=== PATIENT | female | born 1950 | race Caucasian/White ===

== ENCOUNTER 2017-04-28 11:33 | Outpatient (CLI) | payer MEDICARE | END 2017-04-28 11:34 | disposition home or self-care (01) | LOC: BICMAMMO 11:33 | PROVIDERS: ATTEND Obstetrics & Gynecology | DX: Z12.31 Encounter for screening mammogram for malignant neoplasm of breast (principal); R92.1 Mammographic calcification found on diagnostic imaging of breast; Z80.3 Family history of malignant neoplasm of breast | CPT/HCPCS: 77063; 77067 ==

== ENCOUNTER 2017-07-11 11:04 | Outpatient (CLI) | payer MEDICARE | END 2017-07-11 11:05 | disposition home or self-care (01) | LOC: BICCT 11:04 | PROVIDERS: ATTEND Orthopaedic Surgery | DX: S92.322D Displaced fracture of second metatarsal bone, left foot, subsequent encounter for fracture with routine healing (principal); M19.072 Primary osteoarthritis, left ankle and foot; M20.12 Hallux valgus (acquired), left foot; M21.172 Varus deformity, not elsewhere classified, left ankle ==

== ENCOUNTER 2017-09-05 14:59 | Outpatient (CLI) | payer MEDICARE | END 2017-09-05 15:00 | disposition home or self-care (01) | LOC: BICMAMMO 14:59 | PROVIDERS: ATTEND Family Medicine | DX: M81.0 Age-related osteoporosis without current pathological fracture (principal); M85.89 Other specified disorders of bone density and structure, multiple sites | CPT/HCPCS: 77080 ==

== ENCOUNTER 2017-09-15 11:04 | Observation (INO) | payer MEDICARE ==
[2017-09-15 11:42] LABS: #Eosinphils 0.1 thou/uL (0.0-0.7); #Lymphocytes 1.8 thou/uL (1.20-3.40); #Monocytes 0.4 thou/uL (0.11-0.59); #Neutrophils 2.8 thou/uL (1.40-6.50); %Basophils 0.9 % (0.0-1.0); %Eosinophils 1.4 % (0.0-10.0); %Lymphocytes 34.4 % (21.0-51.0); %Monocytes 8.7 % (0.0-10.0); %Neutrophils 54.6 % (42.0-75.0); Hemoglobin 14.7 g/dL (12.0-16.0); Mean Corpuscular HGB CONC 34.9 g/dL (32.0-36.0); Mean Corpuscular Hemoglobin 30.6 pg (27.0-31.0); Mean Corpuscular Volume 87.7 fL (78.0-98.0); Mean Platelet Volume 7.2 fL (7.4-10.4); Platelet Count 200 thou/uL (130-400); RBC Distribution Width 11.5 % (11.5-14.5); Red Blood Cell (RBC) Count 4.79 mill/uL (4.20-5.40); White Blood Cell (WBC) Count 5.1 thou/uL (4.8-10.8)
[2017-09-15 12:04] LABS: ALT (SGPT) 15 U/L (8-55); AST (SGOT) 17 U/L (5-34); Albumin 4.6 g/dL (3.4-4.8); Alkaline Phosphatase 53 U/L (40-150); Anion Gap 15 mmol/L (10-20); BUN (Urea Nitrogen) 14 mg/dL (9.8-20.1); Bilirubin, Total 0.8 mg/dL (0.2-1.2); CK (CPK) 34 U/L (29-168); Calc. Creatinine Clearance 0 mL/min (70-130); Carbon Dioxide 24 mmol/L (23-31); Chloride 105 mmol/L (98-107); Estimated GFR-MDRD 73; Globulin 2.7 g/dL (2.4-3.5); Glucose 114 mg/dL (80-115); Lipase Less than 4 U/L (8-78); Magnesium 2.2 mg/dL (1.6-2.6); Protein, Total 7.3 g/dL (6.0-8.3); Sodium 140 mmol/L (136-145)
[2017-09-15] MEDS ORDERED: Lidocaine Viscous Sol 2% 15 ml UD Cup ONE (12:06)
[2017-09-15] MEDS ORDERED: Mag-Al 1200 mg/1200 mg/30 ML UDCUP ONE (12:06)
[2017-09-15 12:11] LABS: Troponin I Less than 0.010 ng/mL (< 0.028)
--- NOTE | 2017-09-15 12:11 | RAD ---
PORTABLE CHEST: History: Chest pain, discomfort, pain radiating to left arm. Comparison: 05-21-04 FINDINGS: Heart size and mediastinum within normal limits. There are atherosclerotic changes of the aorta. Lung s are clear of infiltrates. There are no signs of failure. IMPRESSION: No active intrathoracic disease. POS: [facility]
[2017-09-15 12:40] LABS: Bilirubin Negative (Negative); Blood, Urine Negative (Negative); Clarity CLEAR (Clear); Glucose, Urine (Dipstick) Negative (Negative); Leukocyte Negative (Negative); Nitrite Negative (Negative); Protein, Urine (Dipstick) Negative (Neg-Trace); Specific Gravity, Urine 1.013 (1.002-1.036); pH, Urine 6.5 (5.0-9.0)
[2017-09-15 12:45] LABS: Free T4 (Free Thyroxine) 1.51 ng/dL (0.70-1.48); Thyroid Stimulating Hormone 0.838 uIU/mL (0.35-4.94)
[2017-09-15 15:03] LABS: Troponin I Less than 0.010 ng/mL (< 0.028)
[2017-09-15] MEDS ORDERED: Acetaminophen 325 MG TAB PO PRN (17:29)
[2017-09-15 18:27] LABS: CRP (Inflammatory) Less than 0.50 mg/dL (= or < 0.5); Magnesium 2.2 mg/dL (1.6-2.6)
[2017-09-15 18:33] LABS: Troponin I Less than 0.010 ng/mL (< 0.028)
[2017-09-15 22:51] VITALS: BMI 25.5
--- NOTE | 2017-09-16 07:55 | HP ---
CHIEF COMPLAINT: Lightheadedness. HISTORY OF PRESENT ILLNESS: The patient is a 67-year-old female who was in her usual state of good health until the day of admission. On that day, the patient was doing yoga in the morning when she had a fairly abrupt onset of some headache, dizziness, and nausea as well as some chest discomforts, feeling more like a pressure. She ate something, but noted that did not help. Over the next couple of hours, she had more chest pressure that radiated to her left shoulder and elbow area. She subsequently presented to [facility] where she was given an aspirin and an EKG was obtained, at that time her blood pressure was noted to be elevated around 180 systolic. The patient was subsequently transferred to the emergency department. While there, the patient was noted to have heart rates in the 40s, which seemed to correlate with her symptoms. She became more lightheaded during those times. She stated that on the exam, she was still a little woozy even when her blood pressure was in the 70s. Patient denies having had any new medications or supplements. She has no prior history of heart problems and no specific prior workup. She has had no associated fevers or chills and no ill contacts. REVIEW OF SYSTEMS: Ten system review was only notable for the shortness of breath which she had experienced along with the other symptoms noted in the history of present illness, otherwise was negative. PAST MEDICAL HISTORY: Hypothyroidism, GERD, hyperlipidemia, basal cell carcinoma, endometrial cancer. PAST SURGICAL HISTORY: Hysterectomy. FAMILY HISTORY: Father had some type of lymphoma. Mother had breast cancer. SOCIAL HISTORY: The patient is a nonsmoker. She has one glass of wine in the evening. She is . She reports her surrogate decision maker is either to be her or her sister and she is a FULL CODE. ALLERGIES: PENICILLIN and CODEINE. MEDICATIONS: Simvastatin 20 mg p.o. daily, levothyroxine 100 mcg p.o. daily, omeprazole 40 mg daily, aspirin 81 mg daily. PHYSICAL EXAMINATION: VITAL SIGNS: Temperature was 97.7, pulse 69, respirations 16, O2 sat 94% on room air, blood pressure 132/69. GENERAL APPEARANCE: Age appropriate female, in no distress. She is awake, alert, oriented, very pleasant, cooperative. HEENT: PERRL. Anicteric sclera. NECK: Supple, symmetric without lymphadenopathy, JVD or bruits. HEART: Regular rate and rhythm without murmurs, gallops or rubs. LUNGS: Clear to auscultation bilaterally. Good chest wall expansion and air exchange. ABDOMEN: Soft, nontender, nondistended, positive bowel sounds, no masses, no organomegaly. EXTREMITIES: Warm and dry. LABORATORY DATA AND IMAGING: White blood cell count 5.1, hemoglobin 14.7, platelets 200. Sodium 140, potassium 4.0, chloride 105, CO2 24, BUN 14, creatinine 0.78, calcium 10. LFTs normal. Lipase less than 4. TSH is 0.838 and free T4 is 0.15. Urinalysis was negative. Chest x-ray was normal. EKG shows sinus rhythm at 58. No ischemic changes. IMPRESSION AND PLAN: Possible symptomatic bradycardia. The patient was noting symptoms of lightheadedness, dizziness, and nausea which in the emergency department appeared to be related to a heart rate of less than 50 on the heart monitor. The patient will be placed in observation and maintained on telemetry. She has had negative troponin, we will continue serial cardiac isoenzymes. We will also check a CRP and sed rate, and magnesium level to ensure there is no other underlying pathology. In my exam, the patient was having some similar symptoms even though her heart rate was around 70. It is not clear that the patient is just experiencing something other than the bradycardia and therefore place her in obs and keep her monitored while we sort that out. VAL
[2017-09-16 08:13] VITALS: BP 125/70; TEMP 98.1
[2017-09-16] MEDS ORDERED: Non-Formulary Item 1 EACH (Omeprazole [Omeprazole] 40 MG) PO SCH (09:00)
[2017-09-16] MEDS ORDERED: Cyanocobalamin (Vitamin B-12) 1,000 MCG TAB PO SCH (09:00)
[2017-09-16] MEDS ORDERED: Aspirin 81 mg Enteric Coated Tablet PO SCH (09:00)
[2017-09-16] MEDS ORDERED: Non-Formulary Item 1 EACH (Cyanocobalamin (Vitamin B-12) [Vitamin B12] 500 MCG) PO SCH (09:00)
[2017-09-16] MEDS ORDERED: Levothyroxine Sodium 100 MCG TAB PO SCH (09:00)
[2017-09-16] MEDS ORDERED: Aspirin 325 mg Enteric Coated Tablet PO SCH (09:00)
--- NOTE | 2017-09-16 10:40 | PDOC.EVN ---
Event Note - Event Note Event Note: DC SUMMARY #[id number]
--- NOTE | 2017-09-16 12:57 | DIS ---
DATE OF ADMISSION: 09/15/2017 DATE OF DISCHARGE: 09/16/2017 ADMITTING DIAGNOSES: Lightheadedness and dizziness. DISCHARGE DIAGNOSIS: Lightheadedness resolved. HOSPITAL COURSE: This is a 67-year-old female who was admitted for some lightheadedness and bradycar venita. Patient's heart rates per patient, outpatient were found to be in the 40s; however, in the hosp ital, the patient's lowest heart rate was in the 61. She was asymptomatic in the hospital throughout her 24-hour observation. ____ patient had a chest x-ray done, which also did not show any acute car diopulmonary pathology. Patient at point in time of discharge denied any nausea, vomiting, diarrhea, constipation, chest pain, fevers, chills, shortness of breath. The patient was supposed to be disch arged home. Follow up with PCP within 7 days. The patient was to resume her home medications with n o changes. DIET: Low fat, low calorie. ACTIVITY: As tolerated. CONDITION: Stable. PROGNOSIS: Good. MEDICATIONS: See MAR. Case and plan discussed with the patient at length. She understood and agreed with this plan.
[2017-09-16] MEDS ORDERED: Atorvastatin Calcium 10 MG TAB PO SCH (21:00)
[2017-09-16] MEDS ORDERED: Simvastatin 20 MG TAB PO SCH (21:00)
== END 2017-09-16 11:13 | disposition home or self-care (01) ==
LOC: ERS 11:04 → ERHOLD 15:56 → 2SW 22:31
PROVIDERS: ADMIT Internal Medicine; ATTEND Internal Medicine
DX: R42 Dizziness and giddiness (principal); E78.00 Pure hypercholesterolemia, unspecified; E03.9 Hypothyroidism, unspecified; K21.9 Gastro-esophageal reflux disease without esophagitis; Z88.0 Allergy status to penicillin; Z79.82 Long term (current) use of aspirin; Z79.899 Other long term (current) drug therapy; Z88.5 Allergy status to narcotic agent
CPT/HCPCS: 71045; 81003; 82550; 82553; 83690; 83735; 84439; 84484 ×2; 85379; 85652; 86140; 93005; 94760; 99285; G0378 ×2; 36415; 80053; 84443; 85025

== ENCOUNTER 2018-04-20 07:57 | Outpatient (CLI) | payer MEDICARE ==
--- NOTE | 2018-04-20 08:41 | RAD ---
PA AND LATERAL CHEST X-RAY: 04/20/2018 HISTORY: Malignant neoplasm of uterus. COMPARISON: 09/15/2017 FINDINGS: The cardiac silhouette and pulmonary vasculature are within normal limits. The lungs are clear. No discrete pulmonary nodule or mass is seen. No pleural effusion is identified. Degenerative changes are seen in the thoracic spine. IMPRESSION: No acute cardiopulmonary process. POS: [facility]
== END 2018-04-20 07:58 | disposition home or self-care (01) ==
LOC: BICRAD 07:57
PROVIDERS: ATTEND Obstetrics & Gynecology
DX: Z08 Encounter for follow-up examination after completed treatment for malignant neoplasm (principal); Z85.42 Personal history of malignant neoplasm of other parts of uterus
CPT/HCPCS: 36415; 71046; 80053; 80061; 82248; 84443; 85025

== ENCOUNTER 2018-06-11 12:26 | Outpatient (CLI) | payer MEDICARE ==
--- NOTE | 2018-06-11 14:11 | MMO ---
Bilateral MAMMO Bilat Screen [facility]. CLINICAL HISTORY: Patient is 67 years old and is seen for screening. The patient has the following family history of breast cancer: mother, malignant (generic). The patient has a history of endometrial cancer in April,. VIEWS: The views performed were: bilateral craniocaudal with tomosynthesis and bilateral mediolateral oblique with tomosynthesis. FILMS COMPARED: The present examination has been compared to prior imaging studies performed at [facility] on 04/28/2017, and at [facility] on 02/26/2007, 08/15/2008, 08/23/2009, 09/10/2010, 12/26/2011, 07/28/2013, 11/24/2014 and 03/27/2016. MAMMOGRAM FINDINGS: The breasts are heterogeneously dense, which could obscure a lesion on mammography. There are no suspicious masses, suspicious calcifications, or new areas of architectural distortion. IMPRESSION: THERE IS NO MAMMOGRAPHIC EVIDENCE OF MALIGNANCY. A ROUTINE FOLLOW-UP MAMMOGRAM IN 1 YEAR IS RECOMMENDED. THE RESULTS OF THIS EXAM WERE SENT TO THE PATIENT. ACR BI-RADS Category 1 - Negative MAMMOGRAPHY NOTE: 1. A negative mammogram report should not delay a biopsy if a dominant of clinically suspicious mass is present. 2. Approximately 10% to 15% of breast cancers are not detected by mammography. 3. Adenosis and dense breasts may obscure an underlying neoplasm.
== END 2018-06-11 12:27 | disposition home or self-care (01) ==
LOC: BICMAMMO 12:26
PROVIDERS: ATTEND Family Medicine
DX: Z12.31 Encounter for screening mammogram for malignant neoplasm of breast (principal); Z80.3 Family history of malignant neoplasm of breast; Z85.42 Personal history of malignant neoplasm of other parts of uterus
CPT/HCPCS: 77063; 77067

== ENCOUNTER 2019-07-20 12:25 | Outpatient (CLI) | payer MEDICARE ==
--- NOTE | 2019-07-20 12:41 | RAD ---
RADIOGRAPH CHEST 2 VIEWS: DATE: 07/20/2019 HISTORY: 68-year-old female with "personal history of malignant neoplasm of uterus" FINDINGS: There is no airspace density, pulmonary edema, suspicious pulmonary mass, pleural effusion, pneumotho rax, or cardiomegaly. IMPRESSION: No active cardiopulmonary findings.
== END 2019-07-20 12:26 | disposition home or self-care (01) ==
LOC: BICRAD 12:25
PROVIDERS: ATTEND Family Medicine
DX: Z08 Encounter for follow-up examination after completed treatment for malignant neoplasm (principal); Z85.42 Personal history of malignant neoplasm of other parts of uterus
CPT/HCPCS: 36415; 71046; 80053; 80061; 84443; 86803

== ENCOUNTER 2019-08-17 10:00 | Outpatient (CLI) | payer MEDICARE ==
--- NOTE | 2019-08-17 11:37 | MMO ---
Bilateral MAMMO Bilat Screen [facility]. CLINICAL HISTORY: Patient is 69 years old and is seen for screening. The patient has the following family history of breast cancer: mother, malignant (generic). The patient has a history of endometrial cancer in April,. VIEWS: The views performed were: bilateral craniocaudal with tomosynthesis and bilateral mediolateral oblique with tomosynthesis. FILMS COMPARED: The present examination has been compared to prior imaging studies performed at [facility] on 04/28/2017 and 06/11/2018, and at [facility] on 11/24/2014 and 03/27/2016. This study has been interpreted with the assistance of computer-aided detection. MAMMOGRAM FINDINGS: The breasts are heterogeneously dense, which could obscure a lesion on mammography. There are benign appearing calcifications seen in both breasts. There are no suspicious masses, suspicious calcifications, or new areas of architectural distortion. IMPRESSION: THERE IS NO MAMMOGRAPHIC EVIDENCE OF MALIGNANCY. A ROUTINE FOLLOW-UP MAMMOGRAM IN 1 YEAR IS RECOMMENDED. THE RESULTS OF THIS EXAM WERE SENT TO THE PATIENT. ACR BI-RADS Category 2 - Benign finding MAMMOGRAPHY NOTE: 1. A negative mammogram report should not delay a biopsy if a dominant of clinically suspicious mass is present. 2. Approximately 10% to 15% of breast cancers are not detected by mammography. 3. Adenosis and dense breasts may obscure an underlying neoplasm. Reported by: REJI DE LA TORRE MD Electonically Signed: [id number]
--- NOTE | 2019-08-17 12:06 | BD ---
BONE DENSITOMETRY: INDICATION: Postmenopausal osteoporosis screening. FINDINGS: Lumbar Spine: BMD (g/cm2) L1 0.905 T-Score: -0.8 L2 0.900 T-Score: -1.2 L3 0.866 T-Score: -2.0 L4 0.923 T-Score: -1.3 L1-L4 0.900 T-Score: -1.3 Femoral Neck: 0.599 T-Score: -2.3 Total Femur: 0.809 T-Score: -1.1 Impression: Bone mineral density of the lumbar spine and femoral neck both indicate osteopenia. POS: [facility]
== END 2019-08-17 10:01 | disposition home or self-care (01) ==
LOC: BICMAMMO 10:00
PROVIDERS: ATTEND Family Medicine
DX: Z12.31 Encounter for screening mammogram for malignant neoplasm of breast (principal); Z13.820 Encounter for screening for osteoporosis; M85.89 Other specified disorders of bone density and structure, multiple sites; Z85.42 Personal history of malignant neoplasm of other parts of uterus; Z80.3 Family history of malignant neoplasm of breast
CPT/HCPCS: 77063; 77067; 77080

== ENCOUNTER 2020-08-22 08:33 | Outpatient (CLI) | payer MEDICARE | END 2020-08-22 08:34 | disposition home or self-care (01) | LOC: BICMAMMO 08:33 | PROVIDERS: ATTEND Family Medicine | DX: Z12.31 Encounter for screening mammogram for malignant neoplasm of breast (principal); Z80.3 Family history of malignant neoplasm of breast; Z85.42 Personal history of malignant neoplasm of other parts of uterus | CPT/HCPCS: 77063; 77067 ==

== ENCOUNTER 2021-09-21 09:27 | Outpatient (CLI) | payer MEDICARE | END 2021-09-21 09:28 | disposition home or self-care (01) | LOC: BICMAMMO 09:27 | PROVIDERS: ATTEND Family Medicine | DX: Z12.31 Encounter for screening mammogram for malignant neoplasm of breast (principal); M81.0 Age-related osteoporosis without current pathological fracture; E55.9 Vitamin D deficiency, unspecified; Z80.3 Family history of malignant neoplasm of breast; M85.851 Other specified disorders of bone density and structure, right thigh; M85.852 Other specified disorders of bone density and structure, left thigh; Z85.42 Personal history of malignant neoplasm of other parts of uterus | CPT/HCPCS: 77063; 77067; 77080 ==

== ENCOUNTER 2023-11-07 10:46 | Outpatient (CLI) | payer MEDICARE | END 2023-11-07 10:47 | disposition home or self-care (01) | LOC: BICRAD 10:46 | PROVIDERS: ATTEND Family Medicine | DX: R07.89 Other chest pain (principal) | CPT/HCPCS: 71046 ==

== ENCOUNTER 2023-11-17 12:47 | Outpatient (CLI) | payer MEDICARE | END 2023-11-17 12:48 | disposition home or self-care (01) | LOC: BICMAMMO 12:47 | PROVIDERS: ATTEND Family Medicine | DX: Z12.31 Encounter for screening mammogram for malignant neoplasm of breast (principal); M81.0 Age-related osteoporosis without current pathological fracture; M85.89 Other specified disorders of bone density and structure, multiple sites; Z80.3 Family history of malignant neoplasm of breast; Z85.828 Personal history of other malignant neoplasm of skin; Z85.42 Personal history of malignant neoplasm of other parts of uterus | CPT/HCPCS: 77063; 77067; 77080 ==

== ENCOUNTER 2023-12-30 08:19 | Outpatient (CLI) | payer MEDICARE | END 2023-12-30 08:20 | disposition home or self-care (01) | LOC: BICRAD 08:19 | PROVIDERS: ATTEND Family Medicine | DX: M25.552 Pain in left hip (principal); M16.12 Unilateral primary osteoarthritis, left hip ==

== ENCOUNTER 2024-11-18 09:07 | Outpatient (CLI) | payer MEDICARE | END 2024-11-18 09:08 | disposition home or self-care (01) | LOC: BICMAMMO 09:07 | PROVIDERS: ATTEND Internal Medicine Endocrinology, Diabetes & Metabolism | DX: Z12.31 Encounter for screening mammogram for malignant neoplasm of breast (principal); M81.8 Other osteoporosis without current pathological fracture; Z80.3 Family history of malignant neoplasm of breast; Z85.820 Personal history of malignant melanoma of skin; M85.89 Other specified disorders of bone density and structure, multiple sites | CPT/HCPCS: 77063; 77067; 77080 ==